=== PATIENT | female | born 1990 | race Two or more races ===

== ENCOUNTER 2021-09-26 09:21 | Inpatient (IN) | payer OTHER ==
[~2021-09-26] VITALS: Ht 172.7 cm; Wt 78.9 kg
[2021-09-26] MEDS ORDERED: PRENATAL CAPLE1 EAC1 PO (09:35)
== END 2021-09-28 12:01 | disposition home or self-care (01) | DRG 807 ==
LOC: LDR 09:21 → OB/GYN 09:21 → LDR 22:59 → OB/GYN 09-27 08:25
PROVIDERS: ADMIT Student in an Organized Health Care Education/Training Program; ATTEND Student in an Organized Health Care Education/Training Program
PROC: 10E0XZZ Delivery of Products of Conception, External Approach (ICD-10-PCS; principal; 2021-09-26)
PROC: 0UQMXZZ Repair Vulva, External Approach (ICD-10-PCS; 2021-09-26)
PROC: 4A1HXFZ Monitoring of Products of Conception, Cardiac Rhythm, External Approach (ICD-10-PCS; 2021-09-26)
DX: O71.82 Other specified trauma to perineum and vulva (principal); Z37.0 Single live birth; Z3A.38 38 weeks gestation of pregnancy